=== PATIENT | female | born 1935 | race Asian ===

== ENCOUNTER 2020-08-26 08:00 | Outpatient (CLI) | payer MEDICARE, BC ==
--- NOTE | 2020-08-26 17:12 | XRAY Report ---
PROCEDURE: Hip w/Pelvis 2-3V LT INDICATIONS: TROCHANTERIC BURSITIS OF LEFT HIP TECHNIQUE: AP pelvis with lateral view(s) of the left hip(s). COMPARISON: None. FINDINGS: Bones: No fractures or dislocations. Pelvic ring appears intact. No suspicious bony lesions. Mode rate bilateral degenerative hip joint space narrowing with small paratracheal or osteophytes. Soft tissues: The visualized bowel gas pattern is normal. No suspicious soft tissue calcifications. IMPRESSION: Bilateral moderate hip osteoarthritis. Reviewed by: Cleopatra Laboy MD on 08/26/2020 5:11 PM PDT Approved by: Cleopatra Laboy MD on 08/26/2020 5:11 PM PDT Station ID: [id number]
== END 2020-08-26 23:59 | disposition home or self-care (01) ==
LOC: DI.S 08:00
PROVIDERS: ATTEND Nurse Practitioner Family
DX: M70.62 Trochanteric bursitis, left hip (principal); M16.0 Bilateral primary osteoarthritis of hip

== ENCOUNTER 2020-09-21 09:36 | Outpatient (CLI) | payer MEDICARE, BC | END 2020-09-21 09:37 | disposition home or self-care (01) | LOC: COV 09:36 | PROVIDERS: ATTEND Family Medicine | DX: Z20.828 Contact with and (suspected) exposure to other viral communicable diseases (principal) ==

== ENCOUNTER 2021-04-29 08:00 | Outpatient (CLI) | payer MEDICARE, BC | END 2021-04-29 23:59 | disposition home or self-care (01) | LOC: LAB.S 08:00 | PROVIDERS: ATTEND Nurse Practitioner Family | DX: G60.9 Hereditary and idiopathic neuropathy, unspecified (principal); Z53.9 Procedure and treatment not carried out, unspecified reason | CPT/HCPCS: 36415; 80053; 82607; 82728; 83036; 83540; 83735; 84466; 85025 ==

== ENCOUNTER 2021-05-29 16:26 | Outpatient (CLI) | payer MEDICARE, BC | END 2021-05-29 16:27 | disposition critical access hospital (66) | LOC: EMS 16:26 | DX: R51.9 Headache, unspecified (principal); R11.2 Nausea with vomiting, unspecified; R68.83 Chills (without fever) | CPT/HCPCS: A0425; A0427 ==

== ENCOUNTER 2021-05-29 16:53 | Emergency (ER) | payer MEDICARE, BC ==
[2021-05-29 17:14] LABS: BASOPHILS % (AUTO) 0.1 %; EOSINOPHILS % (AUTO) 0.3 %; HCT - HEMATOCRIT 38.6 % (37.0-47.0); HGB - HEMOGLOBIN 12.8 g/dL (12.0-16.0); LYMPHOCYTES # (AUTO) 0.8 10^3/uL (1.5-3.5); LYMPHOCYTES % (AUTO) 8.9 %; MEAN CORPUSCULAR HEMOGLOBIN 35.4 pg (27.0-31.0); MEAN CORPUSCULAR HGB CONC 33.2 g/dL (32.0-36.0); MEAN CORPUSCULAR VOLUME 106.6 fL (81.0-99.0); MEAN PLATELET VOLUME 9.6 fL (7.9-10.8); MONOCYTES # (AUTO) 0.5 10^3/uL (0.0-1.0); MONOCYTES % (AUTO) 5.4 %; NEUTROPHILS # (AUTO) 7.4 10^3/uL (1.5-6.6); PLT - PLATELET COUNT 193 10^3/uL (130-450); RED BLOOD COUNT 3.62 10^6/uL (4.20-5.40); RED CELL DISTRIBUTION WIDTH 13.2 % (12.0-15.0); WHITE BLOOD COUNT 8.7 x10^3/uL (4.8-10.8)
[2021-05-29 17:28] LABS: ALBUMIN 3.9 g/dL (3.2-5.5); CALCIUM 8.6 mg/dL (8.5-10.3); CREATININE 1.1 mg/dL (0.4-1.0); POTASSIUM 3.3 mmol/L (3.5-5.0); TOTAL PROTEIN 7.7 g/dL (6.7-8.2)
[2021-05-29] MEDS ORDERED: ONDANSETRON 4 MG/2 ML VIAL IVP STA (17:30)
--- NOTE | 2021-05-29 17:39 | ED Physician Documentation ---
History of Present Illness - Stated complaint Stated Complaint: N/V/SHAKING - Chief complaint Chief Complaint: Abd Pain - History obtained from History obtained from: Patient, Family, EMS - History of Present Illness Timing: Today Pain level max: 0 Pain level now: 0 - Additonal information Additional information: Patient is an 86-year-old female who presents to the emergency department with her . She states that she ate lunch today, bread, cheese and mayonnaise. She began to feel nauseated and shaky afterwards. Emesis x1 and then felt better but still is slightly shaky. No chest pain. No shortness of breath. No recent fevers or chills. No recent illness. She states that she feels like she has a UTI as well and took a dose of Macrobid this morning. Review of Systems Ten Systems: 10 systems reviewed and negative Constitutional: denies: Fever, Chills Ears: denies: Ear pain Nose: denies: Rhinorrhea / runny nose, Congestion GI: denies: Diarrhea, Hematemesis, Bloody / black stool Skin: denies: Rash Musculoskeletal: denies: Neck pain, Back pain, Extremity pain Neurologic: denies: Headache PD PAST MEDICAL HISTORY - Past Medical History Past Medical History: Yes Respiratory: Pneumonia, Other CLEAN ROOM OPERATOR: Endometriosis HEENT: Other Derm: Other Other Past Medical History: Anal cancer. Cataract. Whooping cough. Shingles - Past Surgical History Past Surgical History: Yes Ortho: Knee replacement /CLE[employer] ROOM OPERATOR: Endometrial ablation HEENT: Cataracts - Present Medications Home Medications: Ambulatory Orders Medication Instructions Recorded Confirmed Apixaban [Eliquis] 5 mg PO BID 05/29/21 05/29/21 Cefdinir 300 mg PO BID #20 cap 05/29/21 Furosemide [Lasix] 20 mg PO DAILY 05/29/21 05/29/21 Gabapentin [Neurontin] 100 mg PO DAILY PM 05/29/21 05/29/21 Lansoprazole [Prevacid] 30 mg PO DAILY 05/29/21 05/29/21 Potassium Chloride 10 meq PO BID 05/29/21 05/29/21 Verapamil HCl [Verelan] 120 mg PO DAILY PM 05/29/21 05/29/21 - Allergies Allergies/Adverse Reactions: Allergies Allergy/AdvReac Type Severity Reaction Status Date / Time clobetasol Allergy Unknown Verified 07/17/21 17:15 Phenothiazines Allergy Unknown Verified 05/29/21 17:15 - Social History Does the pt smoke?: No Smoking Status: Never smoker Does the pt drink ETOH?: Yes ETOH Use: Beer, Liquor Does the pt have substance abuse?: No PD ED PE NORMAL - Vitals Vital signs reviewed: Yes - General General: Alert and oriented X 3, No acute distress, Well developed/nourished - HEENT HEENT: PERRL, Moist mucous membranes - Neck Neck: Supple, no meningeal sign - Cardiac Cardiac: RRR, Strong equal pulses - Respiratory Respiratory: No respiratory distress, Clear bilaterally - Abdomen Abdomen: Soft, Non tender, Non distended - Back Back: No CVA TTP, No spinal TTP - Derm Derm: Warm and dry - Extremities Extremities: No edema, No calf tenderness / cord - Neuro Neuro: Alert and oriented X 3 - Psych Psych: Normal mood, Normal affect Results - Vitals Vitals: Vital Signs - 24 hr 05/29/21 05/29/21 05/29/21 17:00 19:06 19:36 Temperature 37.2 C Heart Rate 100 85 93 Respiratory 19 17 22 Rate Blood Pressure 140/48 H 139/106 H 106/62 O2 Saturation 93 96 93 Oxygen O2 Source Room air - EKG (time done) 1737 Rate: Rate (enter#) (96) Rhythm: NSR [place]: Normal Intervals: 1st degree AVB QRS: Normal Ischemia: Normal ST segments, Other (late R wave transition) - Labs Labs: Laboratory Tests 05/29/21 05/29/21 05/29/21 17:10 17:10 17:10 WBC 8.7 RBC 3.62 L Hgb 12.8 Hct 38.6 MCV 106.6 H MCH 35.4 H MCHC 33.2 RDW 13.2 Plt Count 193 MPV 9.6 Neut # (Auto) 7.4 H Lymph # (Auto) 0.8 L [place] # (Auto) 0.5 Eos # (Auto) 0.0 Baso # (Auto) 0.0 Absolute Nucleated RBC 0.00 Nucleated RBC % 0.0 Sodium 137 Potassium 3.3 L Chloride 103 Carbon Dioxide 27 Anion Gap 7.0 BUN 16 Creatinine 1.1 H Estimated GFR (MDRD) 47 L Glucose 100 Calcium 8.6 Total Bilirubin 1.0 AST 29 ALT 22 Alkaline Phosphatase 60 Troponin I High Sens 5.2 Total Protein 7.7 Albumin 3.9 Globulin 3.8 Albumin/Globulin Ratio 1.0 Lipase 82 H Urine Color Urine Clarity Urine pH Ur Specific [place] Urine Protein Urine Glucose (UA) Urine Ketones Urine Occult Blood Urine Nitrite Urine Bilirubin Urine Urobilinogen Ur Leukocyte Esterase Urine RBC Urine WBC Ur Squamous Epith Cells Urine Bacteria Ur Microscopic Review Urine Culture Comments 05/29/21 18:58 WBC RBC Hgb Hct MCV MCH MCHC RDW Plt Count MPV Neut # (Auto) Lymph # (Auto) [place] # (Auto) Eos # (Auto) Baso # (Auto) Absolute Nucleated RBC Nucleated RBC % Sodium Potassium Chloride Carbon Dioxide Anion Gap BUN Creatinine Estimated GFR (MDRD) Glucose Calcium Total Bilirubin AST ALT Alkaline Phosphatase Troponin I High Sens Total Protein Albumin Globulin Albumin/Globulin Ratio Lipase Urine Color YELLOW Urine Clarity HAZY Urine pH 6.5 Ur Specific [place] 1.020 Urine Protein 30 H Urine Glucose (UA) NEGATIVE Urine Ketones NEGATIVE Urine Occult Blood TRACE-INTA Urine Nitrite NEGATIVE Urine Bilirubin NEGATIVE Urine Urobilinogen 0.2 (NORMAL) Ur Leukocyte Esterase SMALL H Urine RBC 6-10 H Urine WBC >25 H Ur Squamous Epith Cells FEW Squamous Urine Bacteria Rare Ur Microscopic Review INDICATED Urine Culture Comments INDICATED PD MEDICAL DECISION MAKING - ED course Complexity details: reviewed results, re-evaluated patient, considered differential, d/w patient ED course: Patient is well-appearing, nontoxic. Afebrile. No significant lab abnormalities other than the UTI. No CVA tenderness. Given Rocephin here. No evidence of sepsis. We will place on oral antibiotics for home as well. She feels much better after IV fluids and Zofran here. Tolerating p.o. without difficulty. Patient and family counseled regarding signs and symptoms for which I believe and urgent re-evaluation would be necessary. Patient with good understanding of and agreement to plan and is comfortable going home at this time This document was made in part using voice recognition software. While efforts are made to proofread this document, sound alike and grammatical errors may occur. Departure - Departure Disposition: 01 Home, Self Care Clinical Impression: UTI (urinary tract infection) Qualifiers: Urinary tract infection type: acute cystitis Hematuria presence: without iris turia Qualified Code(s): N30.00 - Acute cystitis without hematuria Vomiting Qualifiers: Vomiting type: unspecified Vomiting Intractability: non-intractable Nausea presence: with nausea Qualified Code(s): R11.2 - Nausea with vomiting, unspecified Condition: Good Instructions: ED UTI Cystitis Female Follow-Up: ROSA MARIA LIMA ARNP [Primary Care Provider] - Within 3 Days Prescriptions: Cefdinir 300 mg PO BID #20 cap Comments: Take all antibiotics until gone. Return if you worsen. Make sure you are drinking plenty of fluids. Return especially for fevers vomiting or worsening symptoms. Discharge Date/Time: 05/29/21 19:52
[2021-05-29] MEDS ORDERED: SODIUM CHLORIDE 0.9% 500 ML IV STA (18:15)
[2021-05-29 19:04] LABS: BILIRUBIN,URINE NEGATIVE (NEGATIVE); GLUCOSE, URINE (UA) NEGATIVE (NEGATIVE); KETONES,URINE (UA) NEGATIVE (NEGATIVE); LEUKOCYTE ESTERASE, URINE SMALL (NEGATIVE); NITRITE,URINE NEGATIVE (NEGATIVE); OCCULT BLOOD,URINE TRACE-INTA (NEGATIVE); PH,URINE 6.5 PH (5.0-7.5); PROTEIN,URINE 30 mg/dL (NEGATIVE); UROBILINOGEN,URINE 0.2 (NORMAL) E.U./dL (NORMAL)
[2021-05-29 19:05] LABS: CLARITY,URINE HAZY (CLEAR)
[2021-05-29 19:09] LABS: WBC,URINE >25 /HPF (0-5)
[2021-05-29 19:10] LABS: BACTERIA,URINE Rare /HPF (None Seen); SQUAMOUS EPITHELIAL CELL,UR FEW Squamous (<= Few)
[2021-05-29] MEDS ORDERED: cefTRIAXone 1 GM VIAL IVP STA (19:22)
[2021-05-29 19:36] VITALS: BP 106/62
== END 2021-05-29 19:52 | disposition home or self-care (01) ==
LOC: EDUNIT# → SUPCPDRO 16:53 → ED 16:53
DX: N30.00 Acute cystitis without hematuria (principal); R11.2 Nausea with vomiting, unspecified; I44.0 Atrioventricular block, first degree
CPT/HCPCS: 36415; 80053; 81001; 81003; 83690; 84484; 85025; 87086; 93005; 96361; 96374; 96375; 99284